=== PATIENT | female | born 1995 | race African-American/Black ===

== ENCOUNTER 2016-10-20 18:12 | Emergency (ER) | payer OTHER ==
[2016-10-20 18:25] VITALS: BP 121/65; PULSE 85; TEMP 97.7; BMI 33.9
--- NOTE | 2016-10-20 18:58 | PDOC ---
History of Present Illness - General Chief Complaint: Vaginal Bleeding Stated Complaint: 6WKS/VAGINAL BLEEDING Time Seen by Provider: 10/20/16 18:28 History Source: Patient - History of Present Illness Travel History: No Timing/Duration: reports: intermittent Abdominal Pain Onset Location: reports: other (pelvic) Pain Radiation: reports: no radiation Past History - Travel Traveled outside of the country in the last 30 days: No Close contact w/someone who was outside of country & ill: No - Past Medical History Allergies/Adverse Reactions: Allergies Allergy/AdvReac Type Severity Reaction Status Date / Time No Known Allergies Allergy Verified 10/20/16 18:13 Home Medications: Ambulatory Orders NK [No Known Home Medication] 10/20/16 Other medical history: none - Psycho/Social/Smoking Cessation Hx Anxiety: No Suicidal Ideation: No Smoking History: Never smoked Have you smoked in the past 12 months: No Information on smoking cessation initiated: No Hx Alcohol Use: No Drug/Substance Use Hx: No Substance Use Type: None Abd/GI Specific PMHX - Complaint Specific PMHX Diverticulitis: No Gall Bladder Disease: No GERD: No Hepatitis: No Review of Systems - Review of Systems Able to Perform ROS?: Yes Comments:: 10/20/16 19:11 CONSTITUTIONAL: Absent: fever, chills, diaphoresis, generalized weakness, malaise, loss of appetite HEENT: Absent: rhinorrhea, nasal congestion, throat pain, throat swelling, difficulty swallowing, mouth swelling, ear pain, eye pain, visual Changes CARDIOVASCULAR: Absent: chest pain, loss of consciousness, palpitations, irregular heart rate, peripheral edema RESPIRATORY: Absent: cough, shortness of breath, dyspnea with exertion, orthopnea, wheezing, stridor, hemoptysis GASTROINTESTINAL: +Pelvic pain/cramps/vag spotting Absent: abdominal pain, abdominal distension, nausea, vomiting, diarrhea, constipation, melena, hematochezia GENITOURINARY: Absent: dysuria, frequency, urgency, hesitancy, hematuria, flank pain, genital pain MUSCULOSKELETAL: Absent: myalgia, arthralgia, joint swelling SKIN: Absent: rash, itching, pallor HEMATOLOGIC/IMMUNOLOGIC: Absent: easy bleeding, easy bruising, lymphadenopathy, frequent infections ENDOCRINE: Absent: unexplained weight gain, unexplained weight loss, heat intolerance, cold intolerance NEUROLOGIC: Absent: headache, focal weakness or paresthesias, dizziness, unsteady gait, seizure, mental status changes, bladder or bowel incontinence PSYCHIATRIC: Absent: anxiety, depression, suicidal or homicidal ideation, hallucinations. Is the patient limited Bengali proficient: No *Physical Exam - Vital Signs Last Vital Signs Temp Pulse Resp BP Pulse Ox 97.7 F 85 18 121/65 100 10/20/16 18:13 10/20/16 18:13 10/20/16 18:13 10/20/16 18:13 10/20/16 18:13 ED Treatment Course - LABORATORY CBC & Chemistry Diagram: 10/20/16 18:58 10/20/16 18:58 Progress Note - Progress Note Progress Note: 21-year-old female presents to the emergency department complaining of pelvic cramping with vaginal spotting 3 days. Discomfort is described as 3/10 nonradiating intermittent cramping without nausea/vomiting, fever/chills/ diarrhea, flank pains, chest pain, shortness of breath. LMP 08/29/2016 Transvaginal ultrasound this evening shows: Impression: A single intrauterine gestation is seen at approximately 6 weeks 5 days without associated cardiac activity. This finding is probably on the basis of embryonic demise. The embryonic pole also appears somewhat low within the uterine cavity. *DC/Admit/Observation/Transfer Diagnosis at time of Disposition: demise - Discharge Dispostion Disposition: HOME Condition at time of disposition: Guarded - Referrals Referrals: Kay Gonzalez MD [Staff Physician] - - Patient Instructions Printed Discharge Instructions: DI for Miscarriage Additional Instructions: Follow up with your medical clerical assistant on Sunday You must obtain a follow up sonogram Return to the ER for persistent /worsening vaginal bleeding
[2016-10-20] MEDS ORDERED: LIDOCAINE HCL 5% TOP OINTMENT 50 GM TUBE TP ONE (19:04)
--- NOTE | 2016-10-20 19:07 | PDOC ---
*Physical Exam - Vital Signs Last Vital Signs Temp Pulse Resp BP Pulse Ox 97.7 F 85 18 121/65 100 10/20/16 18:13 10/20/16 18:13 10/20/16 18:13 10/20/16 18:13 10/20/16 18:13 ED Treatment Course - LABORATORY CBC & Chemistry Diagram: 10/20/16 18:58 10/20/16 18:58 Medical Decision Making - Medical Decision Making 10/20/16 19:07 Pt seen by the Advanced Practice Provider under my direct supervision Ancillary studies reviewed I agree with plan as outlined by the Advanced Practice Provider JIM Durbin *DC/Admit/Observation/Transfer Diagnosis at time of Disposition: demise - Discharge Dispostion Disposition: HOME Condition at time of disposition: Guarded - Referrals Referrals: Kay Gonzalez MD [Staff Physician] - - Patient Instructions Printed Discharge Instructions: DI for Miscarriage Additional Instructions: Follow up with your resolution agent on Sunday You must obtain a follow up sonogram Return to the ER for persistent /worsening vaginal bleeding
[2016-10-20 19:41] LABS: BASOPHIL 0.5 % (0-2.0); EOSINOPHIL 1.4 % (0-4.5); MCH 26.9 pg (25.7-33.7); MCHC 32.3 g/dl (32.0-36.0); MEAN CELL VOLUME 83.4 fl (80-96); MEAN PLT VOLUME 8.1 fl (7.5-11.1); NEUTROPHILS 58.8 % (42.8-82.8); PLATELET COUNT 296 K/MM3 (134-434); RDW 17.1 % (11.6-15.6); WHITE BLOOD COUNT 6.7 K/mm3 (4.0-10.0)
[2016-10-20 19:43] LABS: URINE APPEARANCE SLCLOUDY; URINE BILIRUBIN NEGATIVE (NEGATIVE); URINE COLOR LTYELLOW; URINE GLUCOSE (UA) NEGATIVE (NEGATIVE); URINE KETONE NEGATIVE (NEGATIVE); URINE NITRITE NEGATIVE (NEGATIVE); URINE PROTEIN NEGATIVE (NEGATIVE); URINE UROBILINOGEN NEGATIVE E.U./dl (0.2-1.0)
[2016-10-20 19:55] LABS: URINE BLOOD 2+ (NEGATIVE); URINE LEUK ESTERASE TRACE (NEGATIVE)
[2016-10-20 19:56] LABS: URINE RBC 1 /hpf (0-3); URINE WBC 4 /hpf (3-5)
[2016-10-20 20:07] LABS: ALBUMIN 3.6 g/dl (3.4-5.0); ANION GAP 8 (8-16); BILIRUBIN,TOTAL 0.2 mg/dL (0.2-1.0); CALCIUM 9.5 mg/dL (8.5-10.1); CO2 30 mmol/L (21-32); CREATININE 0.8 mg/dL (0.55-1.02); GLUCOSE,RANDOM 123 mg/dL (74-106); SGOT/AST 17 U/L (15-37); SGPT/ALT 28 U/L (12-78)
[2016-10-20 20:24] LABS: ALK PHOS 116 U/L (45-117); TOT PROT 7.4 g/dl (6.4-8.2)
== END 2016-10-21 00:04 | disposition home or self-care (01) ==
LOC: JER 18:12
DX: O02.1 Missed abortion (principal); Z3A.01 Less than 8 weeks gestation of pregnancy
CPT/HCPCS: 36415; 76817-TC; 80053; 81003; 81015; 84702; 85025; 86850; 86900; 86901; 99283-25

== ENCOUNTER 2017-06-13 23:33 | Emergency (ER) | payer SELFPAY ==
[2017-06-14 00:24] VITALS: BP 137/71; PULSE 82; TEMP 98.5; BMI 35.7
[2017-06-14 01:02] LABS: BASOPHIL 0.7 % (0-2.0); EOSINOPHIL 0.9 % (0-4.5); MCH 26.7 pg (25.7-33.7); MCHC 32.5 g/dl (32.0-36.0); MEAN CELL VOLUME 82.2 fl (80-96); MEAN PLT VOLUME 7.5 fl (7.5-11.1); NEUTROPHILS 62.5 % (42.8-82.8); PLATELET COUNT 376 K/MM3 (134-434); RDW 16.6 % (11.6-15.6); WHITE BLOOD COUNT 9.3 K/mm3 (4.0-10.0)
[2017-06-14 01:04] LABS: URINE APPEARANCE SLCLOUDY; URINE BILIRUBIN NEGATIVE (NEGATIVE); URINE BLOOD NEGATIVE (NEGATIVE); URINE COLOR LTYELLOW; URINE GLUCOSE (UA) NEGATIVE (NEGATIVE); URINE KETONE NEGATIVE (NEGATIVE); URINE NITRITE NEGATIVE (NEGATIVE); URINE PROTEIN NEGATIVE (NEGATIVE); URINE UROBILINOGEN NEGATIVE mg/dL (0.2-1.0)
--- NOTE | 2017-06-14 01:04 | PDOC ---
History of Present Illness - General Chief Complaint: Vaginal Bleeding Stated Complaint: FATIGUE () Time Seen by Provider: 06/14/17 00:45 History Source: Patient Exam Limitations: No Limitations - History of Present Illness Travel History: No Initial Comments: 06/14/17 00:52 22yo Female patient with no significant past medical history presents to ED c/o vaginal bleeding. Patient reports 4 days ago she took a test and resulted positive. She states today she has been experiencing a lot of cramps and now having vaginal bleeding. Patient reports LNMP: 6-7 weeks ago. She denies n/v/d, fever, Abd pain, back pain, diff breathing. Timing/Duration: reports: getting worse. denies: constant, changing over time, intermittent, resolved prior to arrival, gone now, other Quality: reports: moderate. denies: mild, severe, aching, burning, cramping, dullness, fullness, sharpness, stabbing, throbbing, other Abdominal Pain Onset Location: reports: suprapubic. denies: RUQ, LUQ, RLQ, LLQ , epigastric, periumbilical, generalized abdomen, flank, unknown, other Pain Radiation: denies: no radiation, RUQ, LUQ, RLQ, LLQ, epigastric, periumbilical, flank, groin, scapula, shoulder, chest, back, other Activities at Onset: reports: no specific activity Treatment Prior to Arrive: worse with: analgesics, antacids, cold pack, heat, laxative, enema, other Aggravating Factors: worse with: None, Defecation, Eating, Emotional upset, Exertion, Lodge, Movement, Voiding, Change in position Alleviating Factors: worse with: None, Belching, Shallow Breathing, Defecation, Eating, Holding Breath, Passing Gas, Change in Position, Rest, Voiding, Vomiting Past History - Travel Traveled outside of the country in the last 30 days: No Close contact w/someone who was outside of country & ill: No - Past Medical History Allergies/Adverse Reactions: Allergies Allergy/AdvReac Type Severity Reaction Status Date / Time No Known Allergies Allergy Verified 06/14/17 00:18 Home Medications: Ambulatory Orders NK [No Known Home Medication] 10/20/16 - Reproductive History (#): 3 Para: 0 Therapeutic (s) & number: Yes Spontaneous : 1 - Suicide/Smoking/Psychosocial Hx Smoking History: Never smoked Have you smoked in the past 12 months: No Information on smoking cessation initiated: No Hx Alcohol Use: No Drug/Substance Use Hx: No Substance Use Type: None Abd/GI Specific PMHX - Complaint Specific PMHX Diverticulitis: No Gall Bladder Disease: No GERD: No Hepatitis: No Review of Systems - Review of Systems Able to Perform ROS?: Yes Is the patient limited Bahamian proficient: No ABD/GI: Yes: Abdominal cramping, Other (Vaginal Bleeding) All Other Systems: Reviewed and Negative *Physical Exam - Vital Signs Last Vital Signs Temp Pulse Resp BP Pulse Ox 98.5 F 82 14 137/71 99 06/14/17 00:18 06/14/17 00:18 06/14/17 00:18 06/14/17 00:18 06/14/17 00:18 - Physical Exam General Appearance: Yes: Nourished, Appropriately Dressed. No: Apparent Distress, Mild Distress, Moderate Distress, Severe Distress Neck: positive: Trachea midline, Normal Thyroid, Supple. negative: Rigid, Decreased range of motion, Stridor, Lymphadenopathy (R), Lymphadenopathy (L), Tender lateral, Tender midline Respiratory/Chest: positive: Lungs Clear, Normal Breath Sounds. negative: Chest Tender, Respiratory Distress, Accessory Muscle Use, Labored Respiration, Rapid RR, Decreased Breath Sounds, Paradoxal Breathing, Crackles, Rales, Rhonchi , Stridor, Wheezing Cardiovascular: positive: Regular Rhythm, Regular Rate Gastrointestinal/Abdominal: positive: Normal Bowel Sounds, Soft. negative: Distended, Guarding, Rebound, Tenderness Musculoskeletal: positive: Normal Inspection. negative: CVA Tenderness Extremity: positive: Normal Capillary Refill, Normal Inspection, Normal Range of Motion. negative: Pedal Edema, Swelling, Calf Tenderness, Erythema, Inflammation Integumentary: positive: Normal Color, Dry, Warm Neurologic: positive: vacuum evaporation operator II-XII NML intact, Fully Oriented, Alert, Normal Mood/ Affect, Normal Response, Motor Strength /5 ED Treatment Course - LABORATORY CBC & Chemistry Diagram: 06/14/17 00:55 06/14/17 00:55 - RADIOLOGY Radiology Studies Ordered: Category Date Time Status TRANSVAGINAL ULTRASOUND US [US] Stat Ultrasound 06/14/17 00:49 Ordered *DC/Admit/Observation/Transfer Diagnosis at time of Disposition: Antepartum hemorrhage - Discharge Dispostion Disposition: HOME Condition at time of disposition: Stable Admit: No - Referrals Referrals: Brenden Taylor MD [Staff Physician] - - Patient Instructions Printed Discharge Instructions: DI for Vaginal Bleeding During Additional Instructions: Follow up with your NIBBLER OPERATOR this week for care and further evaluation. Return if any concerns for further evaluation. Print Language: WOLOF
[2017-06-14 01:33] LABS: ALBUMIN 3.7 g/dl (3.4-5.0); ALK PHOS 106 U/L (45-117); ANION GAP 12 (8-16); BILIRUBIN,TOTAL 0.2 mg/dL (0.2-1.0); CALCIUM 9.6 mg/dL (8.5-10.1); CO2 25 mmol/L (21-32); CREATININE 0.8 mg/dL (0.55-1.02); GLUCOSE,RANDOM 126 mg/dL (74-106); SGOT/AST 20 U/L (15-37); SGPT/ALT 31 U/L (12-78); TOT PROT 7.8 g/dl (6.4-8.2)
[2017-06-14 09:51] LABS: URINE BACTERIA FEW /hpf (NEGATIVE); URINE LEUK ESTERASE TRACE (NEGATIVE); URINE RBC 0-3 /hpf (0-3); URINE WBC 0-3 /hpf (3-5)
== END 2017-06-14 03:13 | disposition home or self-care (01) ==
LOC: JER 23:33
DX: O26.891 Other specified pregnancy related conditions, first trimester (principal); O20.8 Other hemorrhage in early pregnancy; Z3A.01 Less than 8 weeks gestation of pregnancy
CPT/HCPCS: 36415; 76817-TC; 80053; 81003; 81015; 84702; 84703; 85025; 86850; 86900; 86901; 99281-25

== ENCOUNTER 2017-07-19 22:02 | Emergency (ER) | payer OTHER ==
[2017-07-19 22:09] VITALS: BP 130/97; PULSE 90; TEMP 98.5; BMI 35.9
--- NOTE | 2017-07-19 22:11 | PDOC ---
Rapid Medical Evaluation Chief Complaint: Injury Time Seen by Provider: 07/19/17 22:07 Medical Evaluation: Allergies Allergy/AdvReac Type Severity Reaction Status Date / Time No Known Allergies Allergy Verified 06/14/17 00:18 07/19/17 22:07 Pt presents with complaint of : slipped at work and fell to the right side c/o right ankle pain. LMP: 04/2017 11 weeks . c/o abdominal pain since the fall. denies vaginal bleeding On brief exam: Patient alert ox3, no deformity to right ankle. + weight bear. abdomen soft I have ordered the following: UA, UCX, Pt will go to the Emergency Dept for further workup
--- NOTE | 2017-07-20 00:13 | PDOC ---
History of Present Illness - General Chief Complaint: Injury Stated Complaint: FALL/INJURY/10 WKS Time Seen by Provider: 07/19/17 22:07 History Source: Patient - History of Present Illness Initial Comments: 07/20/17 00:44 22 year old female c/o right ankle pain after a slip and fall at work landed on the right side. patient also c/o left groin/ pelvic pain. denies vaginal bleeding/ cramping/ + IUP. patient refused imaging Past History - Past Medical History Allergies/Adverse Reactions: Allergies Allergy/AdvReac Type Severity Reaction Status Date / Time No Known Allergies Allergy Verified 06/14/17 00:18 Home Medications: Ambulatory Orders NK [No Known Home Medication] 10/20/16 COPD: No Other medical history: bronchitis - Reproductive History (#): 3 Para: 0 Therapeutic (s) & number: Yes Spontaneous : 1 - Suicide/Smoking/Psychosocial Hx Smoking History: Never smoked Have you smoked in the past 12 months: No Information on smoking cessation initiated: No Hx Alcohol Use: No Drug/Substance Use Hx: No Substance Use Type: None Review of Systems - Review of Systems Able to Perform ROS?: Yes Is the patient limited Serbian proficient: No Constitutional: No: Symptoms Reported, See HPI, Chills, Diaphoresis, Fever, Loss of Appetite, Malaise, Night Sweats, Weakness, Weight Stable, Unintentional Wgt. Loss, Unexplained wgt Loss, Other ABD/GI: Yes: Other (left pelvic pain) *Physical Exam - Vital Signs Last Vital Signs Temp Pulse Resp BP Pulse Ox 98.5 F 90 19 130/97 99 07/19/17 22:07 07/19/17 22:07 07/19/17 22:07 07/19/17 22:07 07/19/17 22:07 - Physical Exam General Appearance: Yes: Appropriately Dressed Female Pelvic Exam: positive: normal external exam, other (cervix is closed. no vaginal bleeding. white discharge ) Gastrointestinal/Abdominal: positive: Normal Bowel Sounds, Soft. negative: Tender Musculoskeletal: positive: Other (rght ankel full rom. no deformity) Neurologic: positive: Fully Oriented, Alert, Normal Mood/Affect ED Treatment Course - LABORATORY CBC & Chemistry Diagram: 07/20/17 00:37 Medical Decision Making - Medical Decision Making 07/20/17 01:34 A: right ankle strain 2: pelvic pain P: xray deferred due to . 2. cbc beta hcg ua close supervising nurse follow up discussed with patient *DC/Admit/Observation/Transfer Diagnosis at time of Disposition: Pelvic pain Right ankle strain Qualifiers: Encounter type: initial encounter Qualified Code(s): S96.911A - Strain of unspecified muscle and tendon at ankle and foot level, right foot, initial encounter - Discharge Dispostion Disposition: HOME - Referrals - Patient Instructions Printed Discharge Instructions: Ankle Sprain Additional Instructions: follow up with your doctor as soon as possible. rest ice and elevate your extremity - Post Discharge Activity
[2017-07-20 00:47] LABS: BASOPHIL 0.8 % (0-2.0); EOSINOPHIL 0.7 % (0-4.5); MCH 27.5 pg (25.7-33.7); MCHC 32.4 g/dl (32.0-36.0); MEAN CELL VOLUME 84.8 fl (80-96); MEAN PLT VOLUME 7.8 fl (7.5-11.1); NEUTROPHILS 60.8 % (42.8-82.8); PLATELET COUNT 311 K/MM3 (134-434); RDW 16.8 % (11.6-15.6); WHITE BLOOD COUNT 8.2 K/mm3 (4.0-10.0)
[2017-07-20 00:50] LABS: URINE APPEARANCE SLCLOUDY; URINE BILIRUBIN NEGATIVE (NEGATIVE); URINE BLOOD NEGATIVE (NEGATIVE); URINE COLOR YELLOW; URINE GLUCOSE (UA) 2+ (NEGATIVE); URINE KETONE NEGATIVE (NEGATIVE); URINE NITRITE NEGATIVE (NEGATIVE); URINE PROTEIN NEGATIVE (NEGATIVE); URINE UROBILINOGEN NEGATIVE mg/dL (0.2-1.0)
[2017-07-20 09:50] LABS: URINE LEUK ESTERASE Negative (NEGATIVE)
== END 2017-07-20 02:20 | disposition home or self-care (01) ==
LOC: JER 22:02
DX: R10.2 Pelvic and perineal pain (principal); S96.911A Strain of unspecified muscle and tendon at ankle and foot level, right foot, initial encounter; W01.0XXA Fall on same level from slipping, tripping and stumbling without subsequent striking against object, initial encounter; Y93.89 Activity, other specified; Y92.9 Unspecified place or not applicable; Y99.0 Civilian activity done for income or pay
CPT/HCPCS: 36415; 81003; 84702; 85025; 86850; 86900; 86901; 87086; 99283-25

== ENCOUNTER 2017-09-20 13:31 | Emergency (ER) | payer OTHER ==
[2017-09-20 13:40] VITALS: BP 113/71; PULSE 106; TEMP 98.3; BMI 34.9
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
== END 2017-09-20 16:40 | disposition home or self-care (01) ==
LOC: JERFT 13:31
DX: O26.892 Other specified pregnancy related conditions, second trimester (principal); S09.8XXA Other specified injuries of head, initial encounter; Y04.2XXA Assault by strike against or bumped into by another person, initial encounter; Y93.89 Activity, other specified; Y92.018 Other place in single-family (private) house as the place of occurrence of the external cause; Y99.8 Other external cause status; Y07.11 Biological father, perpetrator of maltreatment and neglect; Z3A.20 20 weeks gestation of pregnancy
CPT/HCPCS: 76801-TC; 99281-25

== ENCOUNTER 2018-08-15 | Emergency (ER) | payer OTHER ==
[2018-08-15] MEDS ORDERED: SODIUM CHLORIDE 0.9% 500 ML INFUS.BAG IV ONE (00:29)
--- NOTE | 2018-08-15 00:33 | PDOC ---
Attending Attestation - HPI HPI: 08/15/18 00:47 The patient is a 23 year old female, with no significant PMH who presents to the emergency department with left lower quadrant pain and nausea today. Patient took a home test, which was positive. Patient had a recent delivery 6 months ago. Her last menstrual period was in May, which was normal. She also admits to some spotting last week, which resolved on its own. The patient denies chest pain, shortness of breath, headache and dizziness. Denies fever, chills, nausea, vomit, diarrhea and constipation. Denies dysuria, frequency, urgency and hematuria. Allergies: NKA Past surgical history: None reported. Social history: No reported alcohol, drug or cigarette use. - Physicial Exam PE: 08/15/18 00:47 ADULT PHYSICAL EXAM Constitutional: Awake, alert, oriented. No acute distress. Head: Normocephalic. Atraumatic Eyes: PERRL. EOMI. Conjunctivae are not pale. ENT: Mucous membranes are moist and intact. Posterior pharynx without exudates or erythema. Uvula midline. Neck: Supple. Full ROM. No lymphadenopathy. Cardiovascular: Regular rate. Regular rhythm. S1, S2 regular. Distal pulses are 2+ and symmetric. Pulmonary/Chest: No evidence of respiratory distress. Clear to auscultation bilaterally No wheezing, rales or rhonchi. Abdominal: Soft and non-distended. (+) Left lower quadrant tenderness. No rebound, guarding or rigidity. No organomegaly. No palpable masses. Good bowel sounds. Back: No CVA tenderness. Musculoskeletal: No edema. No cyanosis. No clubbing. Full range of motion in all extremities. Nocalf tenderness. Radial/pedal pulses are intact and 2+ bilaterally Skin: Skin is warm and dry. No petechiae. No purpura. Neurological: Alert and oriented to person, place, and time. Cranial nerves II -XII are grossly intact. Normal speech. Strength is grossly symmetric. No sensory deficits. Psychiatric: Good eye contact. Normal interaction, affect and behavior. <Char Shahid - Last Filed: 08/15/18 01:02> - Resident Resident Name: Andre Pantoja - ED Attending Attestation I have performed the following: I have examined & evaluated the patient, The case was reviewed & discussed with the resident, I agree w/resident's findings & plan, Exceptions are as noted - Medical Decision Making 08/15/18 00:33 I, Dr. Annalee Jarrell, DO, attest that this document has been prepared under my direction and personally reviewed by me in its entirety. I further attest, that it accurately reflects all work, treatment, procedures and medical decision -making performed by me. 08/15/18 01:07 a/p: 23yo with + home preg test, an episode of bleeding last week and crampy LLQ side -concern for threatened ab vs ectopic preg -will send labs, type and screen, tvus -will send ua -denies vaginal discharge -will need pelvic exam -will monitor and reassess -pt is nontoxic in appearance <Annalee Jarrell - Last Filed: 08/15/18 01:21>
[2018-08-15] MEDS ORDERED: PYRIDOXINE HCL (B-6) 100 MG TABLET PO ONE (00:43)
[2018-08-15 01:09] LABS: BASO % 0.6 % (0-2.0); EOS % 0.8 % (0-4.5); HEMATOCRIT 33.4 % (32.4-45.2); HEMOGLOBIN 11.2 GM/dL (10.7-15.3); LYMPH % 38.2 % (8-40); MCH 27.3 pg (25.7-33.7); MCHC 33.4 g/dl (32.0-36.0); MEAN CELL VOLUME 81.6 fl (80-96); MEAN PLT VOLUME 7.9 fl (7.5-11.1); MONO % 9.1 % (3.8-10.2); NEUT % 51.3 % (42.8-82.8); PLATELET COUNT 379 K/MM3 (134-434); RBC 4.09 M/mm3 (3.60-5.2); RDW 17.9 % (11.6-15.6); WHITE BLOOD COUNT 6.4 K/mm3 (4.0-10.0)
--- NOTE | 2018-08-15 01:17 | PDOC ---
History of Present Illness - General Chief Complaint: Pain, Acute Stated Complaint: ABD PAIN/ Time Seen by Provider: 08/15/18 00:22 History Source: Patient Exam Limitations: No Limitations - History of Present Illness Initial Comments: 23 yo F presents to the ER with LLQ abdominal pain of 1 day duration. She reports that she took a test which was positive. Before she took her test she had on and off vaginal bleeding. She reports her LMP was Jul 16. She also endorses nausea but no emesis. Denies recent fevers, chills, infections, chest pain, SOB, difficulty breathing , back pain, dysuria, headache, vomiting, blurry vision PCP: Troy Vega Allergies: NKA, NKDA Past History - Past Medical History Allergies/Adverse Reactions: Allergies Allergy/AdvReac Type Severity Reaction Status Date / Time No Known Allergies Allergy Verified 08/15/18 00:13 Home Medications: Ambulatory Orders Cephalexin [Keflex] 500 mg PO BID #14 capsule 08/15/18 Asthma: Yes COPD: No - Reproductive History (#): 3 Para: 0 Cervical CA: No Dysfunctional Uterine Bleeding: No Ectopic : No Endometrial CA: No Polycystic Ovaries: No Therapeutic (s) & number: Yes Tubal Ligation: No Spontaneous : 1 - Immunization History Immunization Up to Date: Yes - Suicide/Smoking/Psychosocial Hx Smoking History: Never smoked Have you smoked in the past 12 months: No Hx Alcohol Use: No Drug/Substance Use Hx: No Substance Use Type: None Review of Systems - Review of Systems Constitutional: Yes: Loss of Appetite. No: Fever, Malaise, Weakness HEENTM: No: Blurred Vision, Tinnitus, Throat Pain, Throat Swelling Respiratory: No: Cough, Shortness of Breath, Stridor, Wheezing, Productive cough Cardiac (ROS): No: Chest Pain, Edema, Irregular Heart Rate, Palpitations, Syncope ABD/GI: Yes: Abdominal Distended, Nausea, Poor Appetite, Poor Fluid Intake, Abdominal cramping. No: Constipated, Diarrhea, Vomiting : Yes: Discharge, Frequency, Hematuria. No: Burning, Dysuria, Flank Pain Musculoskeletal: No: Back Pain, Joint Pain, Muscle Pain Integumentary: No: Change in Color, Dryness, Erythema Neurological: No: Headache, Numbness, Paresthesia, Unsteady Gait Psychiatric: No: Anxiety, Depression, Frequent Crying, Stressors Endocrine: No: Excessive Sweating, Flushing, Intolerance to Cold, Intolerance to Heat Hematologic/Lymphatic: No: Anemia *Physical Exam - Vital Signs Last Vital Signs Temp Pulse Resp BP Pulse Ox 98.2 F 81 20 146/78 100 08/15/18 00:09 08/15/18 00:09 08/15/18 00:09 08/15/18 00:09 08/15/18 00:09 - Physical Exam General Appearance: Yes: Nourished, Appropriately Dressed. No: Apparent Distress, Disheveled HEENT: positive: EOMI, NISA, Normal ENT Inspection, Normal Voice, Symmetrical, TMs Normal Neck: positive: Supple. negative: Tender, Lymphadenopathy (R), Lymphadenopathy (L), Rigidity Respiratory/Chest: positive: Lungs Clear, Normal Breath Sounds. negative: Chest Tender, Respiratory Distress, Labored Respiration Cardiovascular: positive: Regular Rhythm, Regular Rate, S1, S2, JVD Vascular Pulses: Dorsalis-Pedis (R): 2+, Doralis-Pedis (L): 2+ Female Pelvic Exam: positive: normal external exam, adnexal tenderness (Left). negative: cervical os closed (mildly open), normal adnexa, CMT, discharge, vaginal bleeding Gastrointestinal/Abdominal: positive: Normal Bowel Sounds, Flat, Soft Rectal Exam: positive: deferred Lymphatic: negative: Adenopathy Musculoskeletal: positive: Normal Inspection. 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, Fully Oriented, Alert, Normal Mood/ Affect, Normal Response, Motor Strength 5/5 Moderate Sedation - Procedure Monitoring Vital Signs: Procedure Monitoring Vital Signs Temperature 98.2 F 08/15/18 00:09 Pulse Rate 81 08/15/18 00:09 Respiratory Rate 20 08/15/18 00:09 Blood Pressure 146/78 08/15/18 00:09 O2 Sat by Pulse Oximetry (%) 100 08/15/18 00:09 ED Treatment Course - LABORATORY CBC & Chemistry Diagram: 08/15/18 01:00 08/15/18 01:00 - RADIOLOGY Radiology Studies Ordered: Category Date Time Status <14WKS US [US] Stat Ultrasound 08/15/18 00:27 Ordered Medical Decision Making - Medical Decision Making 23 yo F presents to the ER with LLQ abdominal pain of 1 day duration. DDx IBNLT: vs ectopic, ovarian cyst, torsion Plan: Labs, urine, US, Iv hydration, re-assess. Pelvic Exam: Cervical OS is open and erythematous. No abnormal vaginal discharge. No CMT. Mild Left adnexal TTP. No right adnexal TTP. Urine shows 2+ LE and 9 WBC. Will treat with Keflex Oral: 500 mg every 12 hours for 5 to 7 days HCG elevated to 3278 US showed: Intrauterine gestational sac with measurements corresponding to less than 5 weeks is noted. No pole or yolk sac. It may be too early. Follow-up ultrasound recommended to distinguish between very early normal intrauterine gestation and failed gestation (and, the less common possibility of ectopic).. There is a 2.5 cm x 2 cm x 1 cm hemorrhagic right ovarian cyst. The remainder of the right ovary is normal. Normal left ovary. Will DC patient with [facility] fu appt and Abx for UTI. *DC/Admit/Observation/Transfer Diagnosis at time of Disposition: , UTI (urinary tract infection) - Discharge Dispostion Disposition: HOME Condition at time of disposition: Improved Decision to Admit order: No - Prescriptions Prescriptions: Cephalexin [Keflex] 500 mg PO BID #14 capsule - Referrals Referrals: Silvia Oh [Primary Care Provider] - Shruthi Marquez MD [Staff Physician] - - Patient Instructions Printed Discharge Instructions: Medications and , In-Home Tests: Your Questions Answered Additional Instructions: You came into the ER with abdominal pain. We did an ultrasound which showed you might be . It is very important for you to follow up with the [facility] doctor we are refering you to in the next [address] Marquez. We looked at your Urine and saw that you have a UTI. We are sending Keflex to your pharmacy for you to take for the next 7 days. Come back to the ER immediately if your pain worsens, if you vstart bleeding more, or have any other new or worsening concerns. Thank you for coming to the [facility] ER. We hope you feel better soon! Print Language: [place] - Post Discharge Activity
[2018-08-15 01:20] VITALS: BP 146/78; PULSE 81; TEMP 98.2; BMI 30.2
[2018-08-15 01:48] LABS: ALBUMIN 3.6 g/dl (3.4-5.0); ALK PHOS 106 U/L (45-117); ANION GAP 6 MMOL/L (8-16); BILIRUBIN,TOTAL 0.3 mg/dL (0.2-1); BLOOD UREA NITROGEN 10 mg/dL (7-18); CHLORIDE 105 mmol/L (98-107); CO2 27 mmol/L (21-32); CREATININE 0.7 mg/dL (0.55-1.3); GLUCOSE,RANDOM 81 mg/dL (74-106); POTASSIUM 3.8 mmol/L (3.5-5.1); SGOT/AST 20 U/L (15-37); SGPT/ALT 24 U/L (13-61); SODIUM 138 mmol/L (136-145); TOT PROT 7.6 g/dl (6.4-8.2)
[2018-08-15 02:08] LABS: HCG,QUALITATIVE URINE Positive
[2018-08-15 02:10] LABS: URINE APPEARANCE CLEAR; URINE BILIRUBIN NEGATIVE (<2.0 mg/dL); URINE COLOR LTYELLOW; URINE GLUCOSE (UA) NEGATIVE (NEGATIVE); URINE KETONE NEGATIVE (NEGATIVE); URINE LEUK ESTERASE 2+ (NEGATIVE); URINE NITRITE NEGATIVE (NEGATIVE); URINE PROTEIN NEGATIVE (NEGATIVE); URINE UROBILINOGEN NEGATIVE mg/dL (0.2-1.0)
[2018-08-15 02:13] LABS: EPI CELLS FEW /HPF (FEW); URINE BACTERIA RARE /hpf (NONE SEEN); URINE MUCUS RARE
== END 2018-08-15 03:19 | disposition home or self-care (01) ==
LOC: JER
DX: O26.891 Other specified pregnancy related conditions, first trimester (principal); O23.31 Infections of other parts of urinary tract in pregnancy, first trimester; Z3A.01 Less than 8 weeks gestation of pregnancy
CPT/HCPCS: 36415; 76801-TC; 80053; 81003; 81015; 84702; 84703; 85025; 86850; 86900; 86901; 99282-25